=== PATIENT | female | born 1985 | race Caucasian/White ===

== ENCOUNTER → 2018-08-14 | Outpatient (CLI) | payer BC ==
[~2018-08-14] MED LIST: MOTRIN 600600 MG/TAB PO; PERCOCET 325 MG1 TA2 PO; PRENATAL; PROTONIX20 MG PO; TUMS500 MG
[2018-08-14 11:49] LABS: BASO % 0.2 % (0.0-2.0); GRAN # 11.3 (1.4-6.5); GRAN % 86.1 % (42.2-75.2); HEMOGLOBIN 13.2 g/dl (12.5-16.0); LYMPH % 7.6 % (20.0-51.0); MEAN CELL VOLUME 87 fl (80.0-100.0); MEAN CORPUSCULAR HEMOGLOBIN 30 pg (27.0-31.0); MEAN CORPUSCULAR HGB CONC 34 g/dl (33.0-37.0); MEAN PLATELET VOLUME 10.6 fl (7.4-10.4); MONO # 0.7 (0.1-0.6); MONO % 5.6 % (1.7-9.3); PLATELET COUNT 216 K/mm3 (130-400); RED BLOOD COUNT 4.46 M/mm3 (4.10-5.30); REDCELL DISTRIBUTION WIDTH-CV 12.5 % (11.5-14.5)
[2018-08-14 11:58] LABS: ALANINE AMINOTRANSFERASE < 6 U/L (9-52); ALBUMIN 4.2 gm/dL (3.5-5.0); ALKALINE PHOSPHATASE 59 U/L (50-136); ANION GAP 11 mmol/L (7-16); AST,SGOT 20 U/L (15-37); BILIRUBIN,TOTAL 0.3 mg/dL (0.0-1.0); BLOOD UREA NITROGEN 8 mg/dL (7-17); CALCIUM 9.2 mg/dL (8.4-10.2); CARBON DIOXIDE 25 mmol/L (22-30); CHLORIDE 101 mmol/L (98-107); CREATININE, serum 0.72 (0.52-1.25); GLUCOSE 128 mg/dL (74-106); SODIUM 137 mmol/L (137-145); TOTAL PROTEIN 7.7 gm/dL (6.4-8.2)
== END ==
LOC: COL.LAB 11:35
PROVIDERS: Nurse Practitioner
DX: R50.9 Fever, unspecified (principal)

== ENCOUNTER → 2019-10-18 | Outpatient (CLI) | payer BC | LOC: DIA.ED 08:17 | DX: O24.419 Gestational diabetes mellitus in pregnancy, unspecified control (principal) | CPT/HCPCS: G0108 ==

== ENCOUNTER → 2019-11-22 | Outpatient (CLI) | payer BC | LOC: DIA.ED 11-01 10:26 | DX: O24.419 Gestational diabetes mellitus in pregnancy, unspecified control (principal); Z79.4 Long term (current) use of insulin | CPT/HCPCS: G0108 ==

== ENCOUNTER 2019-12-12 02:38 | Inpatient (IN) | payer BC ==
[~2019-12-12] VITALS: Ht 167.6 cm; Wt 88.2 kg
[2019-12-12] VITALS (19 sets, daily range): BP systolic 97–128; BP diastolic 48–82; PULSE 52–80; TEMP 97.4–98.2
--- NOTE | 2019-12-12 02:45 | NUR ---
0245- pt. ambulatory to the unit with by her side. orientated to room and changed into clean gown. pt. reports GFM, no LOF and contractions every 5-10 minutes consistently and painfully since about 2299. Has been buster irregularly since about wednesday. 0250- EFM and TOCO on and tracing. Vitals taken, assessment completed. SVE 9 and patient is morning . Provider vocational training teacher notified and discussed options. IV and fluids going. RN remains at bedside, during the entire process.
[2019-12-12] MEDS ORDERED: PRENATAL TABLET PO (03:08)
[2019-12-12] MEDS ORDERED: PREVACID 30MG30 M1 PO (03:09)
[2019-12-12] MEDS ORDERED: FLONASE NASAL S16 GM NS (03:10)
[2019-12-12] MEDS ORDERED: PROBIOTIC 2 BI1 EACH PO (03:11)
[2019-12-12 03:28] LABS: BASO % 0.2 % (0.0-2.0); EOS % 0.3 % (0-4.0); GRAN # 12.2 (1.4-6.5); HEMATOCRIT 40.8 % (37.0-47.0); HEMOGLOBIN 13.8 g/dl (12.5-16.0); LYMPH # 1.7 (1.2-3.4); LYMPH % 11.2 % (20.0-51.0); MEAN CELL VOLUME 89 fl (80.0-100.0); MEAN CORPUSCULAR HEMOGLOBIN 30 pg (27.0-31.0); MEAN CORPUSCULAR HGB CONC 34 g/dl (33.0-37.0); MEAN PLATELET VOLUME 12.2 fl (7.4-10.4); MONO % 6.6 % (1.7-9.3); PLATELET COUNT 221 K/mm3 (130-400); RED BLOOD COUNT 4.57 M/mm3 (4.10-5.30); REDCELL DISTRIBUTION WIDTH-CV 13.1 % (11.5-14.5)
--- NOTE | 2019-12-12 09:45 | NUR ---
Patient took own blood sugar - 113.
[2019-12-12] MEDS ORDERED: PERCOCET 325 MG1 TA2 PO (09:53)
[2019-12-12] MEDS ORDERED: IBU800 M1 PO (09:53)
--- NOTE | 2019-12-12 15:00 | NUR ---
Patient checked own blood sugar - 120.
--- NOTE | 2019-12-12 20:00 | NUR ---
PT.'S PP BLOOD GLUCOSE IS 110- PT WILL TAKE HER OWN INSULIN QUESTIONS OR ONCERNS DENIED AT THIS TIME
[2019-12-13 03:00] VITALS: BP 110/62; PULSE 74; TEMP 98.2
[2019-12-13 07:40] VITALS: BP 109/70; PULSE 68; TEMP 97.4
[2019-12-13 16:40] VITALS: BP 123/78; PULSE 60; TEMP 97.9
[2019-12-13 19:30] VITALS: BP 118/84; BP 130/75; PULSE 71; PULSE 80; TEMP 97.8
[2019-12-14 07:00] VITALS: BP 122/79; PULSE 78; TEMP 98
== END 2019-12-14 13:45 | disposition home or self-care (01) | DRG 788 ==
LOC: LDR 02:38 → OB 08:00
PROVIDERS: Obstetrics & Gynecology; ADMIT Student in an Organized Health Care Education/Training Program
PROC: 10D00Z1 Extraction of Products of Conception, Low, Open Approach (ICD-10-PCS; principal; 2019-12-12)
DX: O34.211 Maternal care for low transverse scar from previous cesarean delivery (principal); O24.424 Gestational diabetes mellitus in childbirth, insulin controlled; Z3A.39 39 weeks gestation of pregnancy; Z37.0 Single live birth; Z90.89 Acquired absence of other organs
CPT/HCPCS: J0690; J1885; J2175; J2270; J2370; J2405; J2590; J7120